=== PATIENT | female | born 1960 | race Caucasian/White ===

== ENCOUNTER → 2016-09-22 | Outpatient (CLI) | payer BC ==
--- NOTE | 2016-09-23 11:42 | MM ---
Reason for exam: screening (asymptomatic). Last mammogram was performed 1 year ago. History: Patient is postmenopausal. Family history of premenopausal breast cancer in mother at age 43. Taking other hormone for 10 years. Physical Findings: A clinical breast exam by your physician is recommended on an annual basis and results should be correlated with mammographic findings. MG 3D Screening Mammo W/Cad Bilateral CC and MLO view(s) were taken. Prior study comparison: September 09, 2015, bilateral MG 3d screening mammo w/cad. August 08, 2014, right breast MG work up mamm w CAD RT. There are scattered fibroglandular densities. No significant changes when compared with prior studies. ASSESSMENT: Benign, BI-RAD 2 RECOMMENDATION: Routine screening mammogram of both breasts in 1 year.
== END | disposition home or self-care (01) ==
LOC: RADMAMWWP 11:17
PROVIDERS: ATTEND General Practice
DX: Z12.31 Encounter for screening mammogram for malignant neoplasm of breast (principal)
CPT/HCPCS: 77063; G0202

== ENCOUNTER → 2017-07-15 | Outpatient (CLI) | payer BC ==
[2017-07-15 18:44] LABS: DHEA Sulfate 73.7 ug/dL (26.0-430.0)
[2017-07-15 20:17] LABS: ANA w/Reflex to Titer NEGATIVE (NEGATIVE)
== END | disposition home or self-care (01) ==
LOC: LABWHC1 11:35
PROVIDERS: ATTEND Nurse Practitioner Family
DX: L65.9 Nonscarring hair loss, unspecified (principal)
CPT/HCPCS: 36415; 82040; 82306; 82607; 82627; 82652; 82728; 82746; 84270; 84403; 84439; 84443; 84630; 86038

== ENCOUNTER → 2017-10-05 | Outpatient (CLI) | payer BC ==
--- NOTE | 2017-10-06 10:40 | MM ---
Reason for exam: screening (asymptomatic). Last mammogram was performed 1 year ago. History: Patient is postmenopausal. Family history of premenopausal breast cancer in mother at age 43. Taking other hormone for 10 years. Physical Findings: A clinical breast exam by your physician is recommended on an annual basis and results should be correlated with mammographic findings. MG 3D Screening Mammo W/Cad Bilateral CC and MLO view(s) were taken. Prior study comparison: September 22, 2016, bilateral MG 3d screening mammo w/cad. September 09, 2015, bilateral MG 3d screening mammo w/cad. There are scattered fibroglandular densities. Finding: There are typically benign diffuse/scattered calcifications in both breasts. No suspicious abnormality. No significant changes in finding since September 22, 2016 and September 09, 2015. ASSESSMENT: Benign, BI-RAD 2 RECOMMENDATION: Routine screening mammogram of both breasts in 1 year.
== END | disposition home or self-care (01) ==
LOC: RADMAMWWP 10:52
PROVIDERS: ATTEND General Practice
DX: Z12.31 Encounter for screening mammogram for malignant neoplasm of breast (principal)
CPT/HCPCS: 77063; 77067

== ENCOUNTER → 2020-08-02 | Outpatient (CLI) | payer BC ==
--- NOTE | 2020-08-05 08:54 | MM ---
Reason for exam: screening (asymptomatic). Last mammogram was performed 1 year and 8 months ago. History: Patient is postmenopausal. Family history of premenopausal breast cancer in mother at age 43. Taking other hormone for 10 years. Physical Findings: A clinical breast exam by your physician is recommended on an annual basis and results should be correlated with mammographic findings. MG 3D Screening Mammo W/Cad Bilateral CC and MLO view(s) were taken. Prior study comparison: November 24, 2018, bilateral MG 3d screening mammo w/cad. October 05, 2017, bilateral MG 3d screening mammo w/cad. There are scattered fibroglandular densities. There are benign appearing round calcifications bilaterally. There is no discrete abnormality. ASSESSMENT: Benign, BI-RAD 2 RECOMMENDATION: Routine screening mammogram of both breasts in 1 year.
== END | disposition home or self-care (01) ==
LOC: RADMAMWWP 10:58
PROVIDERS: ATTEND General Practice
DX: Z12.31 Encounter for screening mammogram for malignant neoplasm of breast (principal)
CPT/HCPCS: 77063; 77067

== ENCOUNTER 2021-05-25 10:25 | Observation (INO) | payer BC ==
[2021-05-25] MEDS ORDERED: SODIUM CHLORIDE 0.9% 500 ML 500 ML IV STA (11:40)
[2021-05-25] MEDS ORDERED: SODIUM CHLORIDE 0.9% 1,000 ML IV STA (11:40)
[2021-05-25] MEDS ORDERED: MECLIZINE 12.5 MG TAB PO STA ×2 (11:40→13:01)
[2021-05-25] MEDS ORDERED: METOCLOPRAMIDE 5 MG/ML 2 ML VIAL IVP STA (11:41)
--- NOTE | 2021-05-25 11:50 | ED ---
General Adult HPI - General Chief complaint: Dizziness Stated complaint: Nausea/Vomiting/Dizziness Time Seen by Provider: 05/25/21 11:20 Source: patient, RN notes reviewed Mode of arrival: ambulatory Limitations: physical limitation - History of Present Illness Initial comments: This is a 60-year-old female presents emergency department with chief complaint of dizziness, nausea vomiting. Patient states felt extremely dizzy states that she isn't really bathroom became very nauseated started vomiting. She has no complaints of pain denies headache, blurred vision other than when she opens her eyes room spins. It is exacerbated by movement. Patient denies chest pain shortness breath abdominal pain she states her stomach is very upset she's had m ultiple episodes of bile emesis. She has no dysuria no hematuria no history of dizziness including vertigo. Patient states that she took an [id number] muscle relaxer but states that she's taken this several times with no reaction like this. - Related Data Allergies Allergy/AdvReac Type Severity Reaction Status Date / Time No Known Allergies Allergy Verified 05/25/21 11:16 Review of Systems ROS Statement: Those systems with pertinent positive or pertinent negative responses have been documented in the HPI. ROS Other: All systems not noted in ROS Statement are negative. Past Medical History Past Medical History: Thyroid Disorder History of Any Multi-Drug Resistant Organisms: None Reported Past Surgical History: Hysterectomy, Orthopedic Surgery Additional Past Surgical History / Comment(s): d&c Past Psychological History: Depression Smoking Status: Never smoker Past Alcohol Use History: None Reported Past Drug Use History: None Reported General Exam Limitations: physical limitation General appearance: alert, in no apparent distress Head exam: Present: atraumatic, normocephalic, normal inspection Eye exam: Present: normal appearance, PERRL, EOMI. Absent: scleral icterus, conjunctival injection, periorbital swelling ENT exam: Present: normal exam, normal oropharynx, mucous membranes moist Neck exam: Present: normal inspection, full ROM. Absent: tenderness, meningismus, lymphadenopathy Respiratory exam: Present: normal lung sounds bilaterally. Absent: respiratory distress, wheezes, rales, rhonchi, stridor Cardiovascular Exam: Present: regular rate, normal rhythm, normal heart sounds. Absent: systolic murmur, diastolic murmur, rubs, gallop, clicks GI/Abdominal exam: Present: soft, normal bowel sounds. Absent: distended, tenderness, guarding, rebound, rigid Neurological exam: Present: alert, oriented X3, CN II-XII intact, reflexes normal. Absent: motor sensory deficit Skin exam: Present: warm, dry, intact, normal color. Absent: rash Course Vital Signs 05/25/21 05/25/21 11:13 13:25 Temperature 97.8 F Pulse Rate 67 75 Respiratory 18 20 Rate Blood Pressure 153/88 146/82 O2 Sat by Pulse 98 99 Oximetry Medical Decision Making - Medical Decision Making 60-year-old female presented emergency from chief complaint of dizziness. Patient is on multiple rounds medications with no relief symptoms. Patient had persistent dizziness, emesis. Absent unremarkable CT does not reveal any acute changes. Patient be admitted for neurology evaluation I did discuss case with Dr. Gregg who recommended IV steroids, scopolamine patch, MRI, neurology consult - Lab Data Result diagrams: 05/25/21 11:52 05/25/21 11:52 Lab Results 05/25/21 05/25/21 05/25/21 Range/Units 11:52 11:52 11:52 WBC 9.8 (3.8-10.6) k/uL RBC 4.94 (3.80-5.40) m/uL Hgb 15.0 (11.4-16.0) gm/dL Hct 44.8 (34.0-46.0) % MCV 90.8 (80.0-100.0) fL MCH 30.3 (25.0-35.0) pg MCHC 33.4 (31.0-37.0) g/dL RDW 13.0 (11.5-15.5) % Plt Count 236 (150-450) k/uL MPV 8.1 Neutrophils % 83 % Lymphocytes % 12 % Monocytes % 3 % Eosinophils % 1 % Basophils % 0 % Neutrophils # 8.2 H (1.3-7.7) k/uL Lymphocytes # 1.2 (1.0-4.8) k/uL Monocytes # 0.3 (0-1.0) k/uL Eosinophils # 0.1 (0-0.7) k/uL Basophils # 0.0 (0-0.2) k/uL Sodium 138 (137-145) mmol/L Potassium 4.0 (3.5-5.1) mmol/L Chloride 107 (98-107) mmol/L Carbon Dioxide 20 L (22-30) mmol/L Anion Gap 11 mmol/L BUN 15 (7-17) mg/dL Creatinine 0.63 (0.52-1.04) mg/dL Est GFR (CKD-EPI)AfAm >90 (>60 ml/min/1.73 sqM) Est GFR (CKD-EPI)NonAf >90 (>60 ml/min/1.73 sqM) Glucose 132 H (74-99) mg/dL Calcium 10.3 H (8.4-10.2) mg/dL Total Bilirubin 0.6 (0.2-1.3) mg/dL AST 27 (14-36) U/L ALT 18 (4-34) U/L Alkaline Phosphatase 111 (38-126) U/L Troponin I <0.012 (0.000-0.034) ng/mL Total Protein 7.4 (6.3-8.2) g/dL Albumin 4.6 (3.5-5.0) g/dL Disposition Clinical Impression: Dizziness of unknown cause, Nausea & vomiting Disposition: ADMITTED IP TO THIS [facility] Condition: Fair Referrals: Liana Pearson MD [Primary Care Provider] - 1-2 days
[2021-05-25 12:04] LABS: Basophils % (A) 0 %; Eosinophils # (A) 0.1 k/uL (0-0.7); Eosinophils % (A) 1 %; HCT 44.8 % (34.0-46.0); Lymphocytes # (A) 1.2 k/uL (1.0-4.8); Lymphocytes % (A) 12 %; MCH 30.3 pg (25.0-35.0); MCHC 33.4 g/dL (31.0-37.0); MCV 90.8 fL (80.0-100.0); Mean Platelet Volume 8.1; Monocytes # (A) 0.3 k/uL (0-1.0); Monocytes % (A) 3 %; Neutrophils # (A) 8.2 k/uL (1.3-7.7); Neutrophils % (A) 83 %; Platelet Count 236 k/uL (150-450); RBC 4.94 m/uL (3.80-5.40); WBC 9.8 k/uL (3.8-10.6)
[2021-05-25 12:14] LABS: ALT 18 U/L (4-34); AST 27 U/L (14-36); African American GFR (CKD) >90 (>60 ml/min/1.73 sqM); Albumin 4.6 g/dL (3.5-5.0); Alkaline Phosphatase 111 U/L (38-126); Anion Gap 11 mmol/L; Blood Urea Nitrogen 15 mg/dL (7-17); Calcium 10.3 mg/dL (8.4-10.2); Carbon Dioxide 20 mmol/L (22-30); Chloride 107 mmol/L (98-107); Glucose 132 mg/dL (74-99); Non-African American GFR(CKD) >90 (>60 ml/min/1.73 sqM); Sodium 138 mmol/L (137-145); Total Bilirubin 0.6 mg/dL (0.2-1.3); Total Protein 7.4 g/dL (6.3-8.2)
--- NOTE | 2021-05-25 12:22 | XR ---
EXAMINATION TYPE: XR chest 2V DATE OF EXAM: 05/25/2021 COMPARISON: NONE HISTORY: Headache and dizziness TECHNIQUE: Frontal and lateral views of the chest are obtained. FINDINGS: There is no focal air space opacity, pleural effusion, or pneumothorax seen. The cardiac silhouette size is within normal limits. The osseous structures are intact. IMPRESSION: No acute cardiopulmonary process.
--- NOTE | 2021-05-25 12:46 | CT ---
EXAMINATION TYPE: CT brain wo con DATE OF EXAM: 05/25/2021 COMPARISON: None HISTORY: Dizziness and nausea CT DLP: 1094.6 mGycm Automated exposure control for dose reduction was used. FINDINGS: The ventricles, basal cisterns and sulci over the convexities are within normal limits and there is n o mass effect or shift of midline structures. There is a tiny calcification left basal ganglia otherwise no abnormal parenchymal density is identif ied. There is no intra or extra-axial hemorrhage. The posterior fossa including the brainstem, fourth ventricle and cerebellar pontine angles are gross ly normal. Intraorbital contents appear normal and symmetric. Visualized paranasal sinuses and mastoid air cells and inner ear cavities are well aerated. The dustin rium is intact. IMPRESSION: NO SIGNIFICANT ABNORMALITY SEEN.
[2021-05-25] MEDS ORDERED: ONDANSETRON 4 MG/2 ML VIAL IVP STA (13:01)
[2021-05-25] MEDS ORDERED: DIAZEPAM 5 MG/ML 2 ML INJ IVP STA (13:01)
[2021-05-25] MEDS ORDERED: SCOPOLAMINE 1.5MG/72HR PATCH TRANSDERM STA (14:17)
[2021-05-25] MEDS ORDERED: methylPREDNISolone SOD SUCCI 125 MG/2 ML VIAL IV STA (14:17)
[2021-05-25] MEDS ORDERED: ONDANSETRON 4 MG/2 ML VIAL IVP PRN (14:19)
[2021-05-25] MEDS ORDERED: NALOXONE 0.4 MG/ML 1 ML VIAL IV PRN (14:19)
[2021-05-25] MEDS ORDERED: ACETAMINOPHEN TAB 325 MG TAB PO PRN (14:19)
[2021-05-25 14:32] LABS: Appearance,Urine Cloudy (Clear); Bacteria,Urine Occasional /hpf; Bilirubin,Urine Negative (Negative); Blood,Urine Negative (Negative); Budding Yeast,Urine Occasional /hpf; Color,Urine Yellow; Glucose,Urine (UA) Negative (Negative); Ketones,Urine Negative (Negative); Leukocyte Esterase,Urine Trace (Negative); Nitrite,Urine Positive (Negative); Protein,Urine Negative (Negative); RBC,Urine 7 /hpf (0-5); Specific Gravity,Urine 1.015 (1.001-1.035); Squamous Epithelial Cell,Urine <1 /hpf (0-4); Urobilinogen,Urine <2.0 mg/dL (<2.0); WBC,Urine 12 /hpf (0-5)
[2021-05-25] MEDS: SODIUM CHLORIDE 0.9% 1,000 ML IV SCH (14:40)
[2021-05-25] MEDS: methylPREDNISolone SOD SUCCI 125 MG/2 ML VIAL IV SCH (19:49)
--- NOTE | 2021-05-25 21:12 | CT ---
EXAMINATION TYPE: CT angio neck DATE OF EXAM: 05/25/2021 COMPARISON: None HISTORY: vertigo CT DLP: 285.4 mGycm Automated exposure control for dose reduction was used. CONTRAST: Performed with IV Contrast, patient injected with 100 mL of Isovue 370. Images obtained from the aortic arch to the skull base with IV contrast. There are 3-D post processed images. There is arterial flow in the common internal and external carotid arteries bilaterally. There is nor mal branching pattern of the great vessels on the aortic arch. There is arterial flow in both subclav stacy arteries. There is arterial flow in both vertebral arteries. There is wide patency of the carotid artery bifurcations bilaterally. There is no evidence of carotid or vertebral artery aneurysm or dis section. There is arterial flow in the vertebrobasilar artery system. IMPRESSION: Negative CT angiogram of the neck.
[2021-05-25 22:35] VITALS: RESP 16
[2021-05-26] MEDS: methylPREDNISolone SOD SUCCI 125 MG/2 ML VIAL IV SCH ×3 (00:56→11:10)
[2021-05-26] MEDS: SODIUM CHLORIDE 0.9% 1,000 ML IV SCH (05:16)
[2021-05-26] MEDS ORDERED: LEVOTHYROXINE 75 MCG TAB PO SCH (06:30)
[2021-05-26 07:12] VITALS: BP 138/75; PULSE 94; TEMP 98.2
[2021-05-26] MEDS ORDERED: MECLIZINE 25 MG TAB PO PRN (08:27)
[2021-05-26] MEDS ORDERED: SERTRALINE 50 MG TAB PO SCH (09:00)
--- NOTE | 2021-05-26 09:05 | P.CNNES ---
History of Present Illness Consult date: 02/23/21 Requesting physician: Morales Torres Reason for Consult: intractable dizziness History of Present Illness: This is a 60-year-old woman with medical history of hepatitis him the presented emergency department on 05/25/2021 for dizziness, nausea and vomiting. Patient stated she woke up around 9 AM on 05/25/2021 feeling dizzy and she felt like the room is spinning around as well as she was having nausea and vomiting. As stated the patient was feeling dizzy and she felt the room was spinning but she felt the dizziness is worse with any position as well as resting and she had a hard time focusing. She felt her eyes were wobbling but she denies of any double vision, ringing in the ears or hearing loss. She denies of any focal weakness, slurring the speech, difficulty swallowing. She said that the she slept at the around 2:58 AM on 05/25/2021 and she was feeling okay but when she woke up the she knows that she was dizzy and she denies any recent the infection. She denies any history of stroke or TIA in the past. She feels her dizziness currently is drastically better compared to her initial presentation. She stated that the she is able to tolerate food compared to yesterday. Some of the workup in the hospital consisted of: Initial vital signs was blood pressure of 153/88, heart rate of 67, respiratory of 18, temperature of 97.8 Fahrenheit oral and pulse ox of 98% room air. White blood cells 9.8 thousand. Sodium is 138, creatinine is 0.63, initial glucose is 132, calcium is 10.3, AST is 27 ALT of 18. Urine analysis is cloudy, nitrate is positive, etc. history is trace, urine white blood cell is 12 urine bacteria was occasional which is possibly suggestive of urinary tract infection Cisneros virus PCR was not detected. CT of the head is reported as no significant abnormality seen. CT angiography of the neck was reported as negative Review of Systems Review of system: The 12 point system was reviewed and apparent positive and negative per HPI. Past Medical History Past Medical History: Thyroid Disorder History of Any Multi-Drug Resistant Organisms: None Reported Past Surgical History: Hysterectomy, Orthopedic Surgery Additional Past Surgical History / Comment(s): d&c Past Psychological History: Depression Smoking Status: Never smoker Past Alcohol Use History: None Reported Past Drug Use History: None Reported Medications and Allergies Home Medications Medication Instructions Recorded Confirmed Type Ibuprofen 800 mg PO DAILY PRN 05/25/21 05/25/21 History Krill Oil 1,000 mg PO DAILY 05/25/21 05/25/21 History Levothyroxine Sodium [Synthroid] 75 mcg PO DAILY 05/25/21 05/25/21 History Sertraline HCl [Zoloft] 50 mg PO DAILY 05/25/21 05/25/21 History Allergies Allergy/AdvReac Type Severity Reaction Status Date / Time No Known Allergies Allergy Verified 05/25/21 14:24 Physical Examination - Vital Signs Vital Signs: Vital Signs Temp Pulse Pulse Resp BP BP Pulse Ox 05/26/21 07:00 98.2 F 94 16 138/75 96 05/26/21 01:13 98.7 F 96 16 123/72 96 05/25/21 19:20 97.7 F 89 16 133/76 100 05/25/21 17:36 98.0 F 79 18 162/90 100 05/25/21 16:57 98.3 F 96 20 136/74 96 05/25/21 15:33 71 20 150/80 98 05/25/21 13:25 75 20 146/82 99 05/25/21 11:13 97.8 F 67 18 153/88 98 Intake and Output 05/25/21 05/26/21 05/26/21 22:59 06:59 14:59 Intake Total 600 Balance 600 Intake: Intake, IV Titration 600 Amount Sodium Chloride 0.9% 1, 600 000 ml @ 75 mls/hr IV . [id number] [facility] Rx#:[id number] Other: Voiding Method Toilet # Voids 1 1 GENERAL: The patient is lying in bed and is not in acute distress. CHEST: The heart rate is regular rate rhythm. No murmurs to auscultation. No carotid bruit bilaterally. LUNG: Clear to auscultation bilaterally no wheezing noted throughout. Not labored breathing. ABDOMEN/GI: Bowel sounds present in all 4 quadrants. No tenderness to palpation throughout. NEUROLOGICAL: Higher mental function: The patient is awake, alert, oriented to self, place and time. Patient is following commands. No aphasia and no neglect. Cranial nerves: The pupils are round, equal and reactive to light and accommodation. Visual ramirez are full to confrontation throughout. Extraocular movement is intact no nystagmus is noted. Facial sensation is normal to touch throughout. The facial strength is normal throughout. Hearing is normal bilaterally to hand rub. Tongue is midline and moved [id number] without any difficulty. No dysarthria is noted. Shoulder shrug is normal bilaterally. Motor: Gait is slightly felt dizzy with walking but not swaying towards one side or the other. The strength is 5 over 5 throughout. Normal tone and bulk. Cerebellum: Normal finger to nose heel to ohara bilaterally. Sensation: Sensation is normal to touch throughout. Reflexes (right/left): 2+ throughout. Plantars are downgoing bilaterally. Results - Laboratory Findings CBC and BMP: 05/25/21 11:52 05/25/21 11:52 Abnormal Lab Findings: Abnormal Labs 05/25/21 05/25/21 05/25/21 11:52 11:52 11:52 Neutrophils # 8.2 H Carbon Dioxide 20 L Glucose 132 H Calcium 10.3 H Urine Appearance Cloudy H Urine Nitrite Positive H Ur Leukocyte Esterase Trace H Urine RBC 7 H Urine WBC 12 H Urine Bacteria Occasional H Urine Yeast (Budding) Occasional H Assessment and Plan Assessment: Acute Vertigo: seems likely peripheral (does not any any focal deficits)--feels her dizziness is improved compared to initial presentation. History of hypothyroidism and is on synthroid Plan: MRI the brain with and without is ordered by the ED team is pending. In the ED the patient was given Valium 2 mg, meclizine 25 mg once and then a rep eated 25 mg, Reglan, Zofran 4 mg once. I started the patient on the meclizine 25 mg 1 tablet 3 times a day when necessary. IF MRI the brain is negative, There is no further neurological workup. If patient continues to have the dizziness then recommend ENT follow up as an outpatient and as well as vestibular rehab as an outpatient. We'll defer the rest of the medical management to the primary team. Patient stated that she does not want to wait for the MRI and would like to be discharged home. I notified the patient that if she continues to have dizziness as outpatient, then would recommend to get MRI of the brain as an outpatient to rule out any inctracranial process and she is in an agreement. Thank you for the consultation. The plan is discussed with the patient's nurse. Edgardo Barksdale M.D. Neuro-hospitalist Time with Patient: Greater than 30
--- NOTE | 2021-05-26 14:02 | P.HPIM ---
History of Present Illness H&P Date: 05/26/21 Chief Complaint: Vertigo spinning sensation This will serve both in H&P and discharge summary This is a 60-year-old pleasant lady, patient of Dr. Liana Pearson. She has underlying history of hypothyroidism, or short arthritis, for which she presented emergency room secondary to sudden onset within the vertiginous sensation when she woke up in the morning, patient found that her vision is not steady, as it is quivering, and when she started walking, she was unsteady on her gait, secondary to vertigo. Patient started laying down, when she came back from the bathroom, subsequently the vertiginous sensation is worse. Apparently she had a massage which few days prior to this, and has similar episodes also in the past during a massage treatment. Patient denies any ALLERGIES, no diplopia, and no isolated motor weakness, no speech abnormality, patient denies any t innitus and no history of Mnire's Patient was seen in ER, CTA was negative for any vertebrobasilar occlusive disease, CT of the brain is unremarkable chest x-ray is unremarkable, covid is negative, UA shows mild pyuria, however has no symptoms related to it except yeast no dysuria, no hematuria, no urinary frequency no odor to the urine. Review of Systems Constitutional: Reports as per HPI, Denies anorexia, Denies chills, Denies chronic headaches, Denies chronic pain, Denies daytime sleepiness, Denies fatigue, Denies fever, Denies lethargy, Denies malaise, Denies night sweats, Denies poor appetite, Denies sweats, Denies weakness, Denies weight gain, Denies weight loss Ears: deny: decreased hearing, ear discharge, earache, tinnitus Ears, nose, mouth and throat: Reports as per HPI, Reports swelling in mouth, Reports vertigo Cardiovascular: Denies chest pain, Denies decreased exercise tolerance, Denies high blood pressure, Denies irregular heart beat, Denies leg edema, Denies palpitations, Denies paroxysmal nocturnal dyspnea, Denies syncope Respiratory: Reports as per HPI, Denies congestion, Denies cough, Denies cough with sputum, Denies dyspnea, Denies excessive sputum, Denies hemoptysis, Denies home oxygen, Denies pain, Denies pain on inspiration, Denies pleurisy, Denies respiratory infections, Denies sleep apnea, Denies snoring, Denies wheezing Gastrointestinal: Reports as per HPI, Denies abdominal pain, Denies belching, Denies bloating, Denies BRBPR, Denies change in bowel habits, Denies coffee ground emesis, Denies constipation, Denies diarrhea, Denies dyspepsia, Denies early satiety, Denies excessive gas, Denies heartburn, Denies hematemesis, Denies hematochezia, Denies indigestion, Denies jaundice, Denies lactose intolerance, Denies loss of appetite, Denies melena, Denies nausea, Denies vomiting Genitourinary: Reports as per HPI, Denies flank pain, Denies hematuria, Denies urinary frequency Menstruation: Reports as per HPI, Reports postmenopausal Musculoskeletal: Reports as per HPI, Denies arm numbness/tingling, Denies atrophy, Denies fractures, Denies frequent falls, Denies gait dysfunction, Denies hot joints, Denies leg numbness/tingling, Denies limitation of motion, Denies loss of height, Denies low back pain, Denies morning stiffness, Denies muscle cramps, Denies muscle weakness, Denies myalgias, Denies neck pain, Denies neck stiffness, Denies prior amputations, Denies redness of joints, Denies shooting arm pain, Denies shooting leg pain Integumentary: Reports as per HPI Neurological: Reports as per HPI Psychiatric: Reports as per HPI Endocrine: Reports as per HPI, Reports increase in ring/shoe/hat size, Denies cold intolerance, Denies deepening of the voice, Denies excessive sweating, Denies excessive thirst, Denies fatigue, Denies flushing, Denies heat intolerance, Denies high blood sugars, Denies low blood sugars, Denies nocturia, Denies palpitations, Denies polydipsia, Denies polyphagia, Denies polyuria, Denies proptosis, Denies recent glucocorticoid use, Denies thyroid mass, Denies weight change Hematologic/Lymphatic: Reports easy bleeding Allergic/Immunologic: Reports as per HPI Past Medical History Past Medical History: Thyroid Disorder History of Any Multi-Drug Resistant Organisms: None Reported Past Surgical History: Hysterectomy, Orthopedic Surgery Additional Past Surgical History / Comment(s): d&c Past Psychological History: Depression Smoking Status: Never smoker Past Alcohol Use History: None Reported Past Drug Use History: None Reported Medications and Allergies Home Medications Medication Instructions Recorded Confirmed Type Ibuprofen 800 mg PO DAILY PRN 05/25/21 05/25/21 History Krill Oil 1,000 mg PO DAILY 05/25/21 05/25/21 History Levothyroxine Sodium [Synthroid] 75 mcg PO DAILY 05/25/21 05/25/21 History Sertraline HCl [Zoloft] 50 mg PO DAILY 05/25/21 05/25/21 History Meclizine [Antivert] 25 mg PO TID PRN #21 tab 05/26/21 Rx predniSONE [Deltasone] 40 mg PO DAILY #16 tab 05/26/21 Rx Allergies Allergy/AdvReac Type Severity Reaction Status Date / Time No Known Allergies Allergy Verified 05/25/21 14:24 Physical Exam Vitals: Vital Signs Temp Pulse Pulse Resp BP BP Pulse Ox 05/26/21 07:00 98.2 F 94 16 138/75 96 05/26/21 01:13 98.7 F 96 16 123/72 96 05/25/21 19:20 97.7 F 89 16 133/76 100 05/25/21 17:36 98.0 F 79 18 162/90 100 05/25/21 16:57 98.3 F 96 20 136/74 96 05/25/21 15:33 71 20 150/80 98 05/25/21 13:25 75 20 146/82 99 05/25/21 11:13 97.8 F 67 18 153/88 98 Intake and Output 05/25/21 05/26/21 05/26/21 22:59 06:59 14:59 Intake Total 600 Balance 600 Intake: Intake, IV Titration 600 Amount Sodium Chloride 0.9% 1, 600 000 ml @ 75 mls/hr IV . [id number] [facility] Rx#:[id number] Other: Voiding Method Toilet Toilet # Voids 1 1 Results CBC & Chem 7: 05/25/21 11:52 05/25/21 11:52 Labs: Abnormal Lab Results - Last 24 Hours (Table) 05/25/21 05/25/21 05/25/21 Range/Units 11:52 11:52 11:52 Neutrophils # 8.2 H (1.3-7.7) k/uL Carbon Dioxide 20 L (22-30) mmol/L Glucose 132 H (74-99) mg/dL Calcium 10.3 H (8.4-10.2) mg/dL Urine Appearance Cloudy H (Clear) Urine Nitrite Positive H (Negative) Ur Leukocyte Esterase Trace H (Negative) Urine RBC 7 H (0-5) /hpf Urine WBC 12 H (0-5) /hpf Urine Bacteria Occasional H (None) /hpf Urine Yeast (Budding) Occasional H (None) /hpf Microbiology - Last 24 Hours (Table) 05/25/21 11:52 Urine Culture - Preliminary Urine,Clean Catch Laboratory Results WBC 9.8 k/uL (3.8-10.6) 05/25/21 11:52 RBC 4.94 m/uL (3.80-5.40) 05/25/21 11:52 Hgb 15.0 gm/dL (11.4-16.0) 05/25/21 11:52 Hct 44.8 % (34.0-46.0) 05/25/21 11:52 MCV 90.8 fL (80.0-100.0) 05/25/21 11:52 MCH 30.3 pg (25.0-35.0) 05/25/21 11:52 MCHC 33.4 g/dL (31.0-37.0) 05/25/21 11:52 RDW 13.0 % (11.5-15.5) 05/25/21 11:52 Plt Count 236 k/uL (150-450) 05/25/21 11:52 MPV 8.1 05/25/21 11:52 Neutrophils % 83 % 05/25/21 11:52 Lymphocytes % 12 % 05/25/21 11:52 Monocytes % 3 % 05/25/21 11:52 Eosinophils % 1 % 05/25/21 11:52 Basophils % 0 % 05/25/21 11:52 Neutrophils # 8.2 k/uL (1.3-7.7) H 05/25/21 11:52 Lymphocytes # 1.2 k/uL (1.0-4.8) 05/25/21 11:52 Monocytes # 0.3 k/uL (0-1.0) 05/25/21 11:52 Eosinophils # 0.1 k/uL (0-0.7) 05/25/21 11:52 Basophils # 0.0 k/uL (0-0.2) 05/25/21 11:52 Sodium 138 mmol/L (137-145) 05/25/21 11:52 Potassium 4.0 mmol/L (3.5-5.1) 05/25/21 11:52 Chloride 107 mmol/L (98-107) 05/25/21 11:52 Carbon Dioxide 20 mmol/L (22-30) L 05/25/21 11:52 Anion Gap 11 mmol/L 05/25/21 11:52 BUN 15 mg/dL (7-17) 05/25/21 11:52 Creatinine 0.63 mg/dL (0.52-1.04) 05/25/21 11:52 Est GFR (CKD-EPI)AfAm >90 (>60 ml/min/1.73 sqM) 05/25/21 11:52 Est GFR (CKD-EPI)NonAf >90 (>60 ml/min/1.73 sqM) 05/25/21 11:52 Glucose 132 mg/dL (74-99) H 05/25/21 11:52 Calcium 10.3 mg/dL (8.4-10.2) H 05/25/21 11:52 Total Bilirubin 0.6 mg/dL (0.2-1.3) 05/25/21 11:52 AST 27 U/L (14-36) 05/25/21 11:52 ALT 18 U/L (4-34) 05/25/21 11:52 Alkaline Phosphatase 111 U/L (38-126) 05/25/21 11:52 Troponin I <0.012 ng/mL (0.000-0.034) 05/25/21 11:52 Total Protein 7.4 g/dL (6.3-8.2) 05/25/21 11:52 Albumin 4.6 g/dL (3.5-5.0) 05/25/21 11:52 Urine Color Yellow 05/25/21 11:52 Urine Appearance Cloudy (Clear) H 05/25/21 11:52 Urine pH 8.0 (5.0-8.0) 05/25/21 11:52 Ur Specific [place] 1.015 (1.001-1.035) 05/25/21 11:52 Urine Protein Negative (Negative) 05/25/21 11:52 Urine Glucose (UA) Negative (Negative) 05/25/21 11:52 Urine Ketones Negative (Negative) 05/25/21 11:52 Urine Blood Negative (Negative) 05/25/21 11:52 Urine Nitrite Positive (Negative) H 05/25/21 11:52 Urine Bilirubin Negative (Negative) 05/25/21 11:52 Urine Urobilinogen <2.0 mg/dL (<2.0) 05/25/21 11:52 Ur Leukocyte Esterase Trace (Negative) H 05/25/21 11:52 Urine RBC 7 /hpf (0-5) H 05/25/21 11:52 Urine WBC 12 /hpf (0-5) H 05/25/21 11:52 Ur Squamous Epith Cells <1 /hpf (0-4) 05/25/21 11:52 Urine Bacteria Occasional /hpf (None) H 05/25/21 11:52 Urine Yeast (Budding) Occasional /hpf (None) H 05/25/21 11:52 Coronavirus (PCR) Not Detected (Not Detectd) 05/25/21 14:32 Thrombosis Risk Factor Assmnt - Choose All That Apply Any of the Below Risk Factors Present?: Yes Each Factor Represents 1 point: Age 41-60 years, Obesity (BMI >25) Thrombosis Risk Factor Assessment Total Risk Factor Score: 2 Thrombosis Risk Factor Assessment Level: Low Risk Assessment and Plan Plan: Vertigo sensation, 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 Patient has CTA negative of carotid stenosis, cancelled MRI of the brai n by neurology which was requested by her service, follow-up with PCP as the patient already has felt improved with meclizine. Solu-Medrol was given prior to discharge 2. Hypothyroidism, on levothyroxine 3 pyuria, without a urinary tract infection, suspect contamination, request to be repeated as an outpatient 4. Covid test negative Discharge Medication List Ibuprofen 800 mg PO DAILY PRN 05/25/21 [History] Krill Oil 1,000 mg PO DAILY 05/25/21 [History] Levothyroxine Sodium [Synthroid] 75 mcg PO DAILY 05/25/21 [History] Sertraline HCl [Zoloft] 50 mg PO DAILY 05/25/21 [History] Meclizine [Antivert] 25 mg PO TID PRN #21 tab 05/26/21 [Rx] predniSONE [Deltasone] 40 mg PO DAILY #16 tab 05/26/21 [Rx]
== END 2021-05-26 12:30 | disposition home or self-care (01) ==
LOC: EC 10:25 → 6NMEDSUR 14:31
PROVIDERS: ADMIT Family Medicine; ATTEND Family Medicine
DX: R42 Dizziness and giddiness (principal); R11.2 Nausea with vomiting, unspecified; Z20.822 Contact with and (suspected) exposure to COVID-19; E03.9 Hypothyroidism, unspecified; F32.9 Major depressive disorder, single episode, unspecified; Z79.890 Hormone replacement therapy; Z79.899 Other long term (current) drug therapy; Z90.710 Acquired absence of both cervix and uterus
CPT/HCPCS: 96376 ×2; 96361 ×3; 96374; 96375; 99285; 36415; 93005; 80053; 84484; 85025; 81001; 87086; 87077; 87186; 87635; 71046; 70450; 70498; G0378 ×2; J2765; J2930 ×2; J3360; J2405; Q9967

== ENCOUNTER → 2021-11-25 | Outpatient (CLI) | payer BC ==
--- NOTE | 2021-11-26 10:12 | MM ---
Reason for exam: screening (asymptomatic). Last mammogram was performed 1 year and 4 months ago. History: Patient is postmenopausal. Family history of premenopausal breast cancer in mother at age 43. Taking other hormone for 10 years. Physical Findings: A clinical breast exam by your physician is recommended on an annual basis and results should be correlated with mammographic findings. MG 3D Screening Mammo W/Cad Bilateral CC and MLO view(s) were taken. Prior study comparison: August 02, 2020, bilateral MG 3d screening mammo w/cad. November 24, 2018, bilateral MG 3d screening mammo w/cad. There are scattered fibroglandular densities. There are benign appearing round calcifications bilaterally. There is no discrete abnormality. ASSESSMENT: Benign, BI-RAD 2 RECOMMENDATION: Routine screening mammogram of both breasts in 1 year.
== END | disposition home or self-care (01) ==
LOC: RADMAMWWP 11:08
PROVIDERS: ATTEND Family Medicine
DX: Z12.31 Encounter for screening mammogram for malignant neoplasm of breast (principal); Z78.0 Asymptomatic menopausal state; Z80.3 Family history of malignant neoplasm of breast
CPT/HCPCS: 77063; 77067

== ENCOUNTER → 2023-02-08 | Outpatient (CLI) | payer BC ==
--- NOTE | 2023-02-09 17:03 | MM ---
Reason for Exam: Screening (asymptomatic). Last mammogram was performed 1 year(s) and 3 month(s) ago. Patient History: Menarche at age 10. First Full-Term at age 22. Hysterectomy at age 31. Postmenopausal. Mother had breast cancer, age 43. Risk Values: Sheila 5 year model risk: 3.1%. NCI Lifetime model risk: 14.4%. Prior Study Comparison: 11/24/2018 Bilateral Screening Mammogram, [facility]. 08/02/2020 Bilateral Screening Mammogram, [facility]. 11/25/2021 Bilateral Screening Mammogram, [facility]. Tissue Density: There are scattered fibroglandular densities. Findings: Analyzed By CAD. Scattered benign dural calcifications. Tiny oil cyst calcification anterior left breast. There is no suspicious group of microcalcifications or new suspicious mass in either breast. Overall Assessment: Benign, BI-RAD 2 Management: Screening Mammogram of both breasts in 1 year. See note below in regards to patient's increased five-year Sheila score. Patient should continue monthly self-breast exams. A clinical breast exam by your physician is recommended on an annual basis. This exam should not preclude additional follow-up of suspicious palpable abnormalities. Note on Sheila scores and lifetime risk: 1. A Sheila score greater than 3% is considered moderate risk. If this is the case, consider specialist referral to assess eligibility for a risk reducing agent. 2. If overall lifetime risk for the development of breast cancer is 20% or higher, the patient may qualify for future screening with alternating mammogram and breast MRI. Electronically signed and approved by: Christophe Rosenbaum M.D. Radiologist
== END | disposition home or self-care (01) ==
LOC: RADMAMWWP 11:45
PROVIDERS: ATTEND Family Medicine
DX: Z12.31 Encounter for screening mammogram for malignant neoplasm of breast (principal); Z78.0 Asymptomatic menopausal state; Z80.3 Family history of malignant neoplasm of breast
CPT/HCPCS: 77067

== ENCOUNTER → 2024-02-16 | Outpatient (CLI) | payer BC ==
--- NOTE | 2024-02-18 13:45 | MM ---
Reason for Exam: Screening (asymptomatic). Last screening mammogram was performed 12 month(s) ago. Patient History: Menarche at age 10. First Full-Term at age 22. Hysterectomy at age 31. Postmenopausal. Mother had breast cancer, age 43. Risk Values: Sheila 5 year model risk: 3.2%. NCI Lifetime model risk: 14.0%. Prior Study Comparison: 08/02/2020 Bilateral Screening Mammogram, [facility]. 11/25/2021 Bilateral Screening Mammogram, [facility]. 02/08/2023 Bilateral MG screening mammo w CAD, [facility]. Tissue Density: The breasts are almost entirely fatty. Findings: Analyzed By CAD. Right breast: There is no suspicious group of microcalcifications or new suspicious mass. Left breast: There is no suspicious group of microcalcifications or new suspicious mass. Overall Assessment: Negative, BI-RAD 1 Management: Screening Mammogram of both breasts in [address] [facility] will attempt to contact patient to return for supplemental views and ultrasound if indicated. Patient should continue monthly self-breast exams. A clinical breast exam by your physician is recommended on an annual basis. This exam should not preclude additional follow-up of suspicious palpable abnormalities. Note on Sheila scores and lifetime risk: 1. A Sheila score greater than 3% is considered moderate risk. If this is the case, consider specialist referral to assess eligibility for a risk reducing agent. 2. If overall lifetime risk for the development of breast cancer is 20% or higher, the patient may qualify for future screening with alternating mammogram and breast MRI. Electronically signed and approved by: Kulwant Law DO
== END | disposition home or self-care (01) ==
LOC: RADMAMWWP 12:47
PROVIDERS: ATTEND Family Medicine
DX: Z12.31 Encounter for screening mammogram for malignant neoplasm of breast (principal); Z78.0 Asymptomatic menopausal state; Z80.3 Family history of malignant neoplasm of breast
CPT/HCPCS: 77063; 77067

== ENCOUNTER → 2025-02-19 | Outpatient (CLI) | payer BC ==
--- NOTE | 2025-02-19 15:24 | MM ---
Reason for Exam: Screening (asymptomatic). Last screening mammogram was performed 12 month(s) ago. Patient History: Menarche at age 10. First Full-Term at age 22. Hysterectomy at age 31. Postmenopausal. Mother had breast cancer, age 43. Risk Values: Sheila 5 year model risk: 3.3%. NCI Lifetime model risk: 13.6%. Prior Study Comparison: 11/25/2021 Bilateral Screening Mammogram, [facility]. 02/08/2023 Bilateral MG screening mammo w CAD, [facility]. 02/16/2024 Bilateral MG 3D screening mammo w/cad, [facility]. Tissue Density: There are scattered areas of fibroglandular density. Findings: Analyzed By CAD. Right breast: There is no suspicious group of microcalcifications or new suspicious mass. Left breast: There is no suspicious group of microcalcifications or new suspicious mass. Overall Assessment: Negative, BI-RAD 1 Management: Screening Mammogram of both breasts in [address] [facility] will attempt to contact patient to return for supplemental views and ultrasound if indicated. Patient should continue monthly self-breast exams. A clinical breast exam by your physician is recommended on an annual basis. This exam should not preclude additional follow-up of suspicious palpable abnormalities. Note on Sheila scores and lifetime risk: 1. A Sheila score greater than 3% is considered moderate risk. If this is the case, consider specialist referral to assess eligibility for a risk reducing agent. 2. If overall lifetime risk for the development of breast cancer is 20% or higher, the patient may qualify for future screening with alternating mammogram and breast MRI. [facility], , 02/19/2025 3:11 PM. Electronically signed and approved by: Kulwant Law DO
== END | disposition home or self-care (01) ==
LOC: RADMAMWWP 14:29
PROVIDERS: ATTEND Family Medicine
DX: Z12.31 Encounter for screening mammogram for malignant neoplasm of breast (principal); R92.323 Mammographic fibroglandular density, bilateral breasts; Z78.0 Asymptomatic menopausal state; Z80.3 Family history of malignant neoplasm of breast
CPT/HCPCS: 77063; 77067